=== PATIENT | female | born 1990 | race African-American/Black ===

== ENCOUNTER 2020-04-04 07:57 | Observation (INO) | payer BC ==
[~2020-04-04] VITALS: Ht 177.8 cm; Wt 106.6 kg
[2020-04-04 08:31] LABS: BASOPHILS ABSOLUTE AUTO 0.02 K/mm3 (0.00-0.23); BASOPHILS PERCENT AUTO 0 % (0-2); EOSINOPHILS ABSOLUTE AUTO 0.01 K/mm3 (0.00-0.68); EOSINOPHILS PERCENT AUTO 0 % (0-6); Hemoglobin 13.4 g/dL (11.5-16.0); IMMATURE GRAN ABSOLUTE AUTO 0.03 K/mm3 (0.00-0.10); IMMATURE GRAN PERCENT AUTO 0 % (0-1); LYMPHOCYTES ABSOLUTE AUTO 1.38 K/mm3 (0.84-5.20); LYMPHOCYTES PERCENT AUTO 11 % (21-46); MONOCYTES ABSOLUTE AUTO 0.59 K/mm3 (0.16-1.47); MONOCYTES PERCENT AUTO 5 % (4-13); Mean Corpuscular HGB 29.3 pg (26.0-34.0); Mean Corpuscular HGB Conc 32.7 g/dL (31.5-36.5); Mean Corpuscular Volume 90 fL (80-100); Mean Platelet Volume 9.8 fL (9.1-12.4); NEUTROPHILS PERCENT AUTO 84 % (41-73); Platelet Count 382 K/mm3 (150-400); RDW Coefficient Variation 12.4 % (11.7-14.2); RDW Standard Deviation 41.1 fL (35.1-46.3); Red Blood Cell Count 4.57 M/mm3 (3.80-5.20); White Blood Cell Count 12.73 K/mm3 (4.00-11.30)
[2020-04-04 08:52] LABS: Alanine Aminotransfer (ALT/SGP 19 U/L (12-78); Albumin, Blood 3.6 g/dL (3.4-5.0); Albumin/Globulin Ratio 0.9 (0.8-1.8); Alk Phos 58 U/L (50-136); Anion Gap 5 mmol/L (6-16); Aspartate Aminotrans (AST/SGOT 17 U/L (12-37); Bilirubin, Total 0.5 mg/dL (0.1-1.0); Blood Urea Nitrogen 6 mg/dL (8-24); CO2, Blood 27 mmol/L (21-32); Chloride, Blood 106 mmol/L (98-108); Creatinine, Blood 0.86 mg/dL (0.40-1.00); Globulin, Blood 4.2 g/dL (2.2-4.0); Glomerular Filtration Rate >60 (60-); Glucose, Blood 118 mg/dL (70-99); Potassium, Blood 3.9 mmol/L (3.5-5.5); Sodium, Blood 138 mmol/L (136-145); Total Protein, Blood 7.8 g/dL (6.4-8.2)
[2020-04-04 09:01] LABS: Source, Urine Clean Catch
[2020-04-04 09:09] LABS: Bilirubin, Urine Neg (Neg); Blood, Urine 1+ (Neg); Glucose Qualitative, Urine Neg (Neg); Ketones, Urine Neg (Neg); Leukocyte Esterase, Urine Neg (Neg); Nitrite, Urine Neg (Neg); Protein, Urine Neg (Neg); Urobilinogen, Urine NORM (Normal)
[2020-04-04 09:18] LABS: Appearance, Urine Clear (Clear); Color, Urine Yellow (P-Yellow)
[2020-04-04 09:19] LABS: Bacteria Many /hpf; Red Blood Cells, Urine 0-2 /hpf (0-2); Squamous Epithelial Cells Few /hpf (Few); White Blood Cells, Urine 0-2 /hpf (0-5)
[2020-04-04 09:20] LABS: Mucus Light (0-Heavy)
[2020-04-04] MEDS ORDERED: Diflucan150 MG PO (10:21)
[2020-04-04 12:42] LABS: Influenza A, PCR Negative (NEGATIVE); Influenza B, PCR Negative (NEGATIVE); Resp Syncytial Virus, PCR Negative (NEGATIVE); SARS-Cov-2 (COVID-19) PCR, MMC Negative (NEGATIVE)
[2020-04-04] MEDS ORDERED: TRUVADA 200 MG1 EAC2 PO (13:34)
[2020-04-04] MEDS ORDERED: RALT400 PO (13:34)
--- NOTE | 2020-04-04 13:40 | NUR ---
History, Chart, Medications and Allergies reviewed before start of procedure. Lungs clear T/O to Auscultation. Pre-Op teaching done. Pt verbalizes understanding.
--- NOTE | 2020-04-04 14:52 | NUR ---
04/04/20 1452 Vania Martinez ABX GIVEN PRIOR TO OR. IN ER AND IN DAY SURG.
--- NOTE | 2020-04-04 19:17 | NUR ---
SHIFT SUMMARY PT ARRIVED TO UNIT AROUND 1600. HAS ONLY C/O SLIGHT ABD ACHE. DECLINES PAIN MEDS. PLEASANT & COOPERATIVE. SCANT DRNG FROM [facility]. SITE. UP TO BATHROOM TO VOID & UP IN ROOM.
--- NOTE | 2020-04-05 05:11 | NUR ---
SHIFT SUMMARY: PT POD#1 FOR A LAP APPY. A&O X4. VS WNL. LAP SITES C/D/I. PAIN BEING MANAGED WITH PERCOCET AND TORADOL PER EMAR. PT ANALI REG DIET AND DRINKING ADEQUATE AMT OF FLUIDS OVER NIGHT. VOIDING WELL. INDEPENDENT IN ROOM. DENIES PASSING FLATUS. ABX INFUSING WITH FLUIDS TKO.
[2020-04-05] MEDS ORDERED: AMOCLA875 PO (09:44)
[2020-04-05] MEDS ORDERED: OXYC5 PO (09:45)
[2020-04-05] MEDS ORDERED: FLUC150A PO (09:46)
--- NOTE | 2020-04-05 11:15 | NUR ---
PATIENT D/C'D HOME AT THIS TIME; STATES UNDERSTANDING OF MEDS, ACTIVITY, WOUND CARE, F/U APPT, ETC. TOLERATING PO. PAIN CONTROLLED WITH PO PAIN MED. NO ACUTE CHANGES OR C/O.
== END 2020-04-05 11:15 | disposition home or self-care (01) ==
LOC: ER 07:57 → SURS 07:58
PROVIDERS: Emergency Medicine; Physician Assistant; ADMIT Surgery
DX: K35.80 Unspecified acute appendicitis (principal); E28.2 Polycystic ovarian syndrome; K21.9 Gastro-esophageal reflux disease without esophagitis; Z20.828 Contact with and (suspected) exposure to other viral communicable diseases; Z23 Encounter for immunization; Z79.899 Other long term (current) drug therapy
CPT/HCPCS: 0241U; 74176; 80053; 81001; 81025; 83690; 85025; 87086; 88304; 96365; 96375; 99285-25; G0378; J0295; J0696; J1100; J1885; J2250; J2405; J2543; J2704; J2710; J3010; J7030; J7120

== ENCOUNTER 2020-04-17 06:21 | Emergency (ER) | payer BC ==
[~2020-04-17] VITALS: Ht 177.8 cm; Wt 103.4 kg
[~2020-04-17 06:21] MED LIST: AMOCLA875 PO; Diflucan150 MG PO; FLUC150A PO; OXYC5 PO; RALT400 PO; TRUVADA 200 MG1 EAC2 PO
[2020-04-17 06:41] LABS: Source, Urine Clean Catch
[2020-04-17 06:52] LABS: Bilirubin, Urine Neg (Neg); Blood, Urine Neg (Neg); Glucose Qualitative, Urine Neg (Neg); Ketones, Urine Neg (Neg); Leukocyte Esterase, Urine 1+ (Neg); Nitrite, Urine Neg (Neg); Protein, Urine Neg (Neg); Urobilinogen, Urine 2+ (Normal)
[2020-04-17 07:08] LABS: Appearance, Urine Hazy (Clear); Bacteria Rare /hpf; Color, Urine Yellow (P-Yellow); Red Blood Cells, Urine Not Seen /hpf (0-2); Squamous Epithelial Cells Rare /hpf (Few)
[2020-04-17 09:51] LABS: Candida species (DNA Probe) Negative (NEGATIVE); G. vaginalis (DNA Probe) Positive (NEGATIVE); T. vaginalis (DNA Probe) Negative (NEGATIVE)
[2020-04-17] MEDS ORDERED: Flagyl500 MG PO (09:55)
[2020-04-17] MEDS ORDERED: DIFLUCAN100 MG PO (09:58)
[2020-04-19 04:08] LABS: CHLAMYDIA TRACHOMATIS, NAA Negative (Negative)
== END 2020-04-17 10:01 | disposition home or self-care (01) ==
LOC: ER 06:21
PROVIDERS: Emergency Medicine
DX: N76.0 Acute vaginitis (principal); B96.89 Other specified bacterial agents as the cause of diseases classified elsewhere; Z79.899 Other long term (current) drug therapy
CPT/HCPCS: 81001; 87086; 87480; 87491; 87510; 87591; 87660; 99283

== ENCOUNTER → 2020-04-29 | Outpatient (CLI) | payer SELFPAY ==
[~2020-04-29] MED LIST changes: +DIFLUCAN100 MG PO; +Flagyl500 MG PO
[2020-04-29 12:55] LABS: Candida species (DNA Probe) Negative (NEGATIVE); G. vaginalis (DNA Probe) Positive (NEGATIVE); T. vaginalis (DNA Probe) Negative (NEGATIVE)
[2020-05-02 12:09] LABS: CHLAMYDIA TRACHOMATIS, NAA Negative (Negative)
== END ==
LOC: LAB 11:30
PROVIDERS: Physician Assistant
DX: N72 Inflammatory disease of cervix uteri (principal); N76.0 Acute vaginitis; B96.89 Other specified bacterial agents as the cause of diseases classified elsewhere
CPT/HCPCS: 87077; 87086; 87186; 87480; 87491; 87510; 87591; 87660